=== PATIENT | male | born 1985 | race Caucasian/White ===

== ENCOUNTER 2016-11-17 00:47 | Emergency (ER) | payer SELFPAY ==
--- NOTE | 2016-11-17 04:20 | ER ---
ADMIT: 11/17/2016 RM/LOC: ER [facility] MR#: [id number] [facility] [address] [place], [place] [id number] ZAC FRANK [address] [place] [id number] Emergency Room Report SEX: M AGE: 30 : 1985 DATE: 11/17/2016 CHIEF COMPLAINT: Alcohol intoxication and medical clearance. HISTORY OF PRESENT ILLNESS: The patient is a 30-year-old male, who was brought in by [facility] for medical clearance to go to care home. He refused to take a Breathalyzer for them and they needed clearance to go to care home. They state that he did not have any instance of where he would have injured himself. The patient has no complaints to me, is not completely cooperative during the exam but states he has no pain or is not in any distress at this time. PAST MEDICAL HISTORY: Denies any medical problems. MEDICATIONS: Denies taking medications. ALLERGIES: NONE. SOCIAL HISTORY: Admits to alcohol use. PHYSICAL EXAMINATION: VITAL SIGNS: Blood pressure 125/109, pulse 109, respirations 18, temp 98.2, sats 97%. GENERAL: The patient is in no distress. HEAD: Atraumatic. NECK: Supple. HEART: Regular rate and rhythm. LUNGS: Clear to auscultation. EXTREMITIES: The patient moves all extremities without difficulty and does not appear to be in any distress whatsoever. He does appear to likely be intoxicated. MEDICAL DECISION MAKING: Based on patient's lack of any complaints and his examination, I believe the patient is cleared to go to care home at this time. He is discharged in stable condition. DIAGNOSIS: Likely intoxication. Vj Amor MD/ michael JOB #: [id number] CC: Vj Amor MD, Attending Physician Marcial Galvez MD, Family Physician
== END 2016-11-17 01:00 ==
LOC: ER 00:47
DX: F10.129 Alcohol abuse with intoxication, unspecified (principal)